=== PATIENT | female | born 1955 | race Caucasian/White ===

== ENCOUNTER → 2016-08-16 | Outpatient (CLI) | payer OTHER ==
[~2016-08-16] MED LIST: CALCIUM + D SO1 EACH; LEVOTHYROXIN0.025 MG; MULTIVITAMINS1 EAC7; PERCOCET 7.5-31 EACH PO; PROZAC20 MG; TUMS; VITAMIN D400 UNI2; XARELTO10 MG PO
== END ==
LOC: RAD 13:10
DX: Z12.31 Encounter for screening mammogram for malignant neoplasm of breast (principal)

== ENCOUNTER → 2016-11-30 | Outpatient (CLI) | payer OTHER ==
[2016-11-30 07:50] LABS: CREATININE 0.6 mg/dL (0.6-1.0)
== END ==
LOC: ULTRA 07:01
PROVIDERS: Family Medicine
DX: N64.4 Mastodynia (principal); R31.29 Other microscopic hematuria

== ENCOUNTER → 2019-02-06 | Outpatient (CLI) | payer OTHER | LOC: RAD 13:30 | DX: Z12.31 Encounter for screening mammogram for malignant neoplasm of breast (principal) ==

== ENCOUNTER → 2019-05-01 | Outpatient (CLI) | payer OTHER | LOC: NUC 08:19 | DX: M81.0 Age-related osteoporosis without current pathological fracture (principal); Z78.0 Asymptomatic menopausal state; N91.2 Amenorrhea, unspecified ==

== ENCOUNTER → 2019-05-10 | Outpatient (CLI) | payer OTHER ==
[~2019-05-10] MED LIST changes: +AMITRIPTYLINE H25 M4 PO; +ELMIRON 100 MG100 M1 PO; +LEVO-T100 MCG PO; +PREMARIN0.625 MG PO; -PROZAC20 MG; +PROZAC20 MG PO
--- NOTE | 2019-05-11 19:00 | SLE ---
[facility] [place] [address] POLYSOMNOGRAPHY STUDY Name: CIERRAREBECCA IZQUIERDOI Room #: REG [facility].#: [id number] Admission: 05/10/19 Attend Phys: Sumeet Jasso MD Discharge: Date of : 53 Report #: [id number] THIS REPORT FOR: //name// CC: Sumeet García MD DATE OF SERVICE: 05/10/2019 SLEEP STUDY DATE OF STUDY: 05/10/2019. REFERRED BY: Dr. Marcelo García. The patient is 63 years old, who weighs 142 pounds with a BMI of 22.6. The patient has severe subjective hypersomnia with an [place] score of 18. Review of medications revealed the use of amitriptyline and fluoxetine. The patient underwent diagnostic sleep study performed at [facility]. During the night of study, the patient spent 467 minutes in bed and slept for 379 minutes with a sleep efficiency of 81%. Sleep latency was 22 minutes with a REM latency of 391 minutes. Sleep architecture showed increased stage 1 and stage 2 sleep, reduced slow wave, and reduced REM sleep, which was only 3.3% of the total sleep time. During the night of study, patient had 24 obstructive apneas, 4 mixed apneas, 2 central apneas, and 4 hypopneas. The patient's apnea hypopnea index was 5.4 per hour with a REM index of 4.8 per hour and a supine index of 7.8 per hour. EKG monitoring revealed an average heart rate of 80 beats per minute and no sustained arrhythmias were observed. Occasional PVCs and PACs were seen. PLMS was seen at an index of 9 per hour and 3 per hour, caused EEG arousals. Nocturnal oximetry study revealed an average oxygen saturation of 96% with a lowest of 88%. Due to low AHI, patient did not meet the split night criteria for a CPAP initiation. IMPRESSION: 1. Mild sleep apnea-hypopnea syndrome at an AHI of 5.4 per hour. 2. No clinically significant nocturnal hypoxia. 3. Mild periodic limb movements. [facility] [address] [place] [address] POLYSOMNOGRAPHY STUDY Name: REBECCA NORTON Room #: REG [facility]#: [id number] Admission: 05/10/19 Attend Phys: Sumeet Jasso MD Discharge: Date of : 53 Report #: [id number] RECOMMENDATIONS: 1. The patient did not meet the split night criteria for CPAP initiation due to a low AHI. 2. The patient has severe subjective hypersomnia.( epworth score 18). Would recommend treating patient's mild sleep apnea with either CPAP or oral appliance to see an improvement in symptoms. 3. Consider the effect of the medications as well, which may be contributing to hypersomnia. Clinical correlation is advised. She is currently on fluoxetine and amitriptyline. 4. If the patient's hypersomnia does not resolve after the above recommendation, then patient would need further evaluation such as multiple sleep latency test to rule out disorders such as narcolepsy. 5. Avoid RECRUITMENT INTERN depressants. 6. Cautioned regarding driving until patient's hypersomnia is resolved with the above recommendations. <ELECTRONICALLY SIGNED> By: Sumeet Jasso MD 05/11/19 1900 1506 1725 Sumeet Jasso MD /nt
== END ==
LOC: SLEEPLAB 10:15
DX: G47.33 Obstructive sleep apnea (adult) (pediatric) (principal); G47.30 Sleep apnea, unspecified; G47.20 Circadian rhythm sleep disorder, unspecified type

== ENCOUNTER → 2019-05-20 | Outpatient (CLI) | payer OTHER ==
[~2019-05-20] VITALS: Ht 170.2 cm; Wt 64.9 kg
--- NOTE | 2019-05-21 05:56 | P ---
[facility] [place] [address] PROCEDURE REPORT Name: REBECCA NORTON Room #: REG [facility] Fu#: [id number] Admission: 05/20/19 Attend Phys: Kavya Hood DO Discharge: Date of : 53 Report #: [id number] THIS REPORT FOR: //name// CC: Kavya García DATE OF SERVICE: 05/20/2019 COLON POLYP SURVEILLANCE COLONOSCOPY She is a patient of Dr. Marcelo García. INDICATION FOR PROCEDURE: This patient has a history of adenomatous colon polyps that were small. Last colonoscopy, I believe, was in 2014. Informed consent for this procedure was obtained prior to the administration of any medication. The risks of the procedure, which include bleeding, perforation, infection, complications of sedation and the possibility I could miss something were explained to the patient and she has indicated her consent by signing. DESCRIPTION OF PROCEDURE: Propofol was slowly titrated before and during this procedure for patient comfort by the anesthesia service. Digital rectal exam was performed and no abnormalities were palpated. Then, the Olympus colonoscope was introduced through the anal sphincter and advanced under direct visualization to the terminal ileum. Findings are noted on withdrawal of the scope. The terminal ileal mucosa appears normal. Cecum, normal mucosa. Ascending colon, normal mucosa. Hepatic flexure, normal mucosa. Transverse colon, normal mucosa. Splenic flexure, normal mucosa. Descending colon, normal mucosa. Sigmoid colon, normal mucosa. Rectum, normal mucosa. Retroflexed view did not reveal any abnormalities. The scope was withdrawn. The patient went to the recovery area in stable condition. She tolerated the procedure well. IMPRESSION: Normal colonoscopic exam to the terminal ileum. No evidence of recurrent colon polyps. RECOMMENDATIONS: For her to have a followup colonoscopy in approximately [address] [address] PROCEDURE REPORT Name: CIERRAREBECCA PILY Room #: REG [facility] Fu#: [id number] Admission: 05/20/19 Attend Phys: Kavya Hood DO Discharge: Date of : 53 Report #: [id number] Thank you very much once again for allowing me to participate in her care, Dr. García. <ELECTRONICALLY SIGNED> By: Kavya Hood DO 05/21/19 0556 [id number] [id number] Kavya Hood DO /nt
== END | disposition home or self-care (01) ==
LOC: GI 11:27
DX: Z12.11 Encounter for screening for malignant neoplasm of colon (principal); Z86.010 Personal history of colon polyps; E03.9 Hypothyroidism, unspecified; E78.5 Hyperlipidemia, unspecified; Z87.19 Personal history of other diseases of the digestive system; M85.80 Other specified disorders of bone density and structure, unspecified site; Z98.890 Other specified postprocedural states; Z79.899 Other long term (current) drug therapy; Z85.820 Personal history of malignant melanoma of skin
CPT/HCPCS: 62110; 62900

== ENCOUNTER → 2019-06-10 | Outpatient (CLI) | payer OTHER | LOC: RAD 10:29 | DX: M47.815 Spondylosis without myelopathy or radiculopathy, thoracolumbar region (principal); M43.8X4 Other specified deforming dorsopathies, thoracic region; M41.85 Other forms of scoliosis, thoracolumbar region ==

== ENCOUNTER → 2019-06-15 | Outpatient (CLI) | payer OTHER | LOC: MRI 09:59 | DX: S22.080A Wedge compression fracture of T11-T12 vertebra, initial encounter for closed fracture (principal); X58.XXXA Exposure to other specified factors, initial encounter; Y93.89 Activity, other specified; Y92.89 Other specified places as the place of occurrence of the external cause; Y99.8 Other external cause status ==

== ENCOUNTER → 2021-01-18 | Outpatient (CLI) | payer OTHER ==
[~2021-01-18] MED LIST changes: +ALEVE220 M1 PO; +CLOBETASOL 0.0560 G1 TOP; +ESTRACE42.5 GM VAG; +FLUOXETINE HCL40 MG PO; +HAIR SKIN NAIL1 EACH PO; +HYDROCORTISONE30 GM TOP; +LEVOXYL112 MCG PO; +LIPITOR 20 MG T20 M1 PO; +TUMS X-STR300 MG PO; +VISTARIL 25 MG25 M1 PO; +VITAMIN D350 MCG PO
[2021-01-18 09:11] LABS: HEMATOCRIT 38.8 % (37.0-47.0); MCH 32.1 pg (26.0-34.0); MCHC 33.6 g/dL (28.0-37.0); MCV 95.6 fL (80.0-100.0); RBC 4.06 mil/uL (4.20-5.00); RDW 13.7 % (10.5-14.5); WBC 4.5 thou/uL (4.0-11.0)
[2021-01-18 09:25] LABS: URINE BILIRUBIN NEGATIVE (Negative); URINE BLOOD TRACE (Negative); URINE CLARITY CLEAR; URINE COLOR YELLOW; URINE GLUCOSE-RANDOM* NEGATIVE (Negative); URINE KETONES NEGATIVE (Negative); URINE LEUKOCYTES-REFLEX NEGATIVE (Negative); URINE NITRITE-REFLEX NEGATIVE (Negative); URINE PROTEIN (DIPSTICK) NEGATIVE (Negative); URINE UROBILINOGEN 0.2 E.U./dl (0.2-1.0)
[2021-01-18 09:28] LABS: ALBUMIN 3.7 g/dL (3.4-5.0); CALCIUM 8.6 mg/dL (8.5-10.1); CREATININE 0.7 mg/dL (0.6-1.0); POTASSIUM 3.9 mmol/L (3.5-5.1)
[2021-01-18 09:31] LABS: INR 0.97; PROTIME 10.6 Seconds (10.5-12.1)
--- NOTE | 2021-01-19 07:59 | EKG ---
[place] [address] [facility] [place] [address] ELECTROCARDIOGRAM REPORT Name: REBECCA NORTON Room #: REG [facility] Nickie#: [id number] Admission: 01/18/21 Attend Phys: Pablo Doan MD Discharge: Date of : 53 Report #: [id number] [facility] Test Date: 2021-01-18 Test Time: 08:59:34 Pat Name: REBECCA NORTON Department: Room: Gender: F Directional Driller: DARY : 1955 Requested By: Pablo Doan Order Number: [id number] MD: Pasquale Bruce Measurements Intervals [place]ott Rate: 74 P: 75 CT: 161 QRS: 72 QRSD: 100 T: 63 QT: 420 QTc: 466 Interpretive Statements Sinus rhythm No significant abnormality Compared to ECG 04/12/2015 15:37:06 No significant changes Electronically Signed On 01-19-2021 7:59:14 CDT by Pasquale Bruce [email or web address] <ELECTRONICALLY SIGNED> By: Pasquale Bruce MD, [facility] 01/19/21 [phone] [id number] Pasquale Bruce MD, FACC /EPI
== END ==
LOC: PAC 06:04
PROVIDERS: ATTEND Orthopaedic Surgery
DX: Z01.812 Encounter for preprocedural laboratory examination (principal); Z01.810 Encounter for preprocedural cardiovascular examination; M17.11 Unilateral primary osteoarthritis, right knee; Z91.048 Other nonmedicinal substance allergy status

== ENCOUNTER 2021-01-30 10:03 | Inpatient (IN) | payer OTHER ==
[2021-01-30] VITALS (8 sets, daily range): BP systolic 102–139; BP diastolic 59–78
[~2021-01-30] VITALS: Ht 167.6 cm; Wt 59.4 kg
--- NOTE | 2021-01-30 17:05 | NUR ---
ASSUMED PT CARE THIS AM. PT A&OX4, ABLE TO MAKE NEEDS KNOWN. PATIENT REPORTING PAIN AT A 3/10, DENIES NEEDING PAIN MEDICATION AT THIS TIME. PATIENT REPORTING NO NAUSEA, NUMBNESS, OR TINGLING. PATIENT REPORTS STIFFNESS IN THE RIGHT HIP. DRESSING TO RIGHT HIP IS C/D/I, ICE PACK IN PLACE. FALL PRECAUTIONS ARE IN PLACE, CALL LIGHT WITHIN REACH. PATIENT IS ON ROOM AIR. BROTHAARON MCDUFFIE IS AT BEDSIDE.
--- NOTE | 2021-01-31 02:27 | NUR ---
ASSUMED PT CARE AT 1900.PT C/O PAIN TO HER R KNEE,MANAGED WITH MED.PT UP WITH ASSIST/GB AND WALKER TO TE [facility],GOOD ENDURANCE NOTED.DRSG TO HER KNEE C/D/I WITH POLAR PACK/SCD AND BELLE HOSE IN PLACE.PT WAS NAUSEOUS AT START OF SHIFT,REGLAN PRN REGLAN GIVEN,EFFECTIVE.PT RESTING ON HER BED AT THIS TIME.CALL LIGHT WITHIN REACH.
--- NOTE | 2021-01-31 03:10 | NUR ---
ASSUMED PT CARE AT 1900.HS MEDS TAKEN BY PT WITH NO PROBLEM.PT UP WITH ASSIST TO THE BSC,GOOD ENDURANCE NOTED.DRSG TO HER R HIP C/D/I WITH ICE BAG IN PLACE.PT ABLE TO MAKE HIS NEEDS KNOWN.CALL LIGHT WITHIN REACH.
[2021-01-31 04:49] VITALS: BP 112/64
[2021-01-31 09:02] VITALS: BP 110/58
--- NOTE | 2021-01-31 11:04 | O ---
[facility] [place] [address] OPERATIVE REPORT Name: REBECCA NORTON Room #: 447-P [facility]#: [id number] Admission: 01/30/21 Attend Phys: Pablo Doan MD Discharge: Date of : 53 Report #: [id number] THIS REPORT FOR: cc: Marcelo García MD, Rene P. MD Abraham,Pablo Prater MD ~ DATE OF SERVICE: 01/30/2021 PREOPERATIVE DIAGNOSIS: Right hip osteoarthritis. POSTOPERATIVE DIAGNOSIS: Right hip osteoarthritis. PROCEDURE: Right total hip arthroplasty. SURGEON: Pablo Doan MD. INSURANCE CLAIMS SPECIALIST: Miriam Higgins PA-C. INDICATION FOR INSURANCE CLAIMS SPECIALIST: Throughout the case, extensive retraction and manipulation of the hip was required including dislocation and reduction. This was afforded to me by my warehouse assistant. ANESTHESIA: LMA. IMPLANTS: [employer]ic[employer]hew size 14 high offset Synergy cemented stem, a size 52 R3 acetabular cup with one acetabular screw and a size 36, -3 Oxinium head. ESTIMATED BLOOD LOSS: 150 mL COMPLICATIONS: None. SPECIMENS: None. CONDITION UPON LEAVING THE OR: Stable. INDICATIONS FOR PROCEDURE: The patient is a 65-year-old female with right hip osteoarthritis. She had failed conservative measures for this and after discussion with her, she elected for right total hip arthroplasty. DESCRIPTION OF PROCEDURE: Risks, benefits, alternatives, complications were discussed in detail with the patient including but not limited to risk of anesthesia, risk of damage to nerves, arteries, blood vessels, risk for infection, bleeding, risk for leg length discrepancy, instability and need for reoperation. Informed consent was obtained from the patient. Right hip was appropriately marked in the preoperative holding area. IV Ancef was given for preoperative antibiotics. She was brought to the operating room and placed in [address] [address] OPERATIVE REPORT Name: REBECCA NORTON Room #: 447-P [facility]#: [id number] Admission: 01/30/21 Attend Phys: Pablo Doan MD Discharge: Date of : 53 Report #: [id number] supine position on the operating room table. LMA anesthesia was induced without complication. She was then placed in the left lateral decubitus position with the right hip uppermost. Right hip and lower extremity were prepped and draped in normal sterile fashion. Timeout was performed properly identifying the patient and procedure as well as instrumentation and implants. All in the operating room in were agreement. Standard posterior approach to the hip was made with #10 blade through the skin. Dissection was taken down to fascia with Bovie cautery. Perera elevator was used to clean off the fascia. Fresh #10 blade was used to make a fascial incision. This was taken proximally and distally with curved Knight scissor. Charnley retractor was placed. Trochanteric bursa was taken down with Bovie cautery. Piriformis tendon was identified, tagged and taken down with Bovie. Short external rotators were also taken down with Bovie cautery. Capsulotomy was made and capsule ends were tagged for later repair. Hip was dislocated. There was extensive osteoarthritic change of the femoral head. Femoral neck cut was made 1 cm proximal to the lesser trochanter based on preoperative templating and femoral head was removed. Deep acetabular retractors were placed. Labrum was removed sharply. Pulvinar was removed with Bovie cautery. Acetabulum was then sequentially reamed up to a size 52, at which point there was excellent bleeding cancellous bone. A size 51 trial cup was placed, found to have a good fit. A final size 52 R3 acetabular cup was placed and seated. One acetabular screw was placed for backup fixation and a polyethylene liner for a 36 head was placed. Attention was turned to the femur. This was reamed and broached up to a size 14, at which point the size 14 broach was stable. This was trialed with a high offset neck and a 36+0 head. Hip was reduced, taken through range of motion, found to be stable, found to have equal leg lengths. Hip was dislocated. Broach was removed and final size 14 high offset Synergy stem was cemented in place using standard cementation techniques. After the cement cured, this was trialed with a 36, -3 head. Hip was reduced, taken through range of motion, found to be stable, found to have equal leg lengths. Hip was dislocated. The trial head was removed and final size 36, -3 Oxinium head was placed. This hip was reduced, taken through range of motion, found to be stable, found to have equal leg lengths. The wound was thoroughly irrigated with normal saline. Periarticular injections consisting of morphine, ropivacaine, epinephrine, and Toradol were placed around the hip joint capsule. A gram of vancomycin was placed deep in the joint. The capsule and piriformis were repaired with 0 FiberWire. Fascia was closed with 0 Vicryl. Skin was closed with 2-0 Vicryl, 3-0 Monocryl. Dermabond and a NILESH dressing was applied. The patient tolerated this procedure well and went to recovery room under care of anesthesia postoperatively. <ELECTRONICALLY SIGNED> By: Pablo Doan MD 01/31/21 1104 1535 1615 Pablo Doan MD /mikey
[2021-01-31 11:50] VITALS: BP 110/58
--- NOTE | 2021-01-31 12:12 | NUR ---
ASSUMED PT CARE THIS AM. PT IS ALERT & ORIENTED X4. PT IS UP WITH ASSIST X1 TO THE BEDSIDE COMMODE WITH WALKER AND GAITBELT. PT HAS BILATERAL BELLE HOSES KNEE HIGH, NILESH DRESSING, ICE PACK AND SCD. PT IS ON ROOM AIR. PER PHYSICAL THERAPY OK FOR DC TODAY. PT WAS WORKING WITH PHYSICAL THERAPY THIS AM. PT TOLERATED MEDICATION AND DIET. 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 WILL CONTINUE TO MONITOR PT.
--- NOTE | 2021-01-31 14:45 | NUR ---
ASSESSMENT: CM REVIEWED CHART AND MET WITH PATIENT AT THE BEDSIDE. PT IS ALERT AND ORIENTED X4. PT IS S/P R CT. PT REPORTS LIVING ALONE BUT STATES HER BROTHER IS IN TOWN AND WILL BE STAYING WITH HER TO HELP. PT REPORTS HAVING 2 SMALL STEPS TO ENTER THE HOME AND NO STEPS SHE HAS TO USE ONCE INSIDE. PT REPORTS SHE HAS A GRAB BAR AT HOME WELL A WALKER SHE CAN USE. PT REPORTS BEING INDEPENDENT WITH ADLS. PT REPORTS SHE DOES NOT HAVE OUTPATIENT THERAPY CURRENTLY ARRANGED .PHYSICAL THERAPY WORKED WITH PATIENT AND SHE IS SAFE FOR HOME TODAY. PT HAS ORDERS TO DISCHARGE HOME TODAY WITH NO NEEDS FROM CM. CASE CLOSED.
== END 2021-01-31 14:45 | disposition home or self-care (01) | DRG 470 ==
LOC: OR → TBA 10:03 → OR 11:30 → 4S 15:46
PROVIDERS: ADMIT Orthopaedic Surgery; ATTEND Orthopaedic Surgery
PROC: 0SR9069 Replacement of Right Hip Joint with Oxidized Zirconium on Polyethylene Synthetic Substitute, Cemented, Open Approach (ICD-10-PCS; principal; 2021-01-30)
DX: M16.11 Unilateral primary osteoarthritis, right hip (principal); E78.5 Hyperlipidemia, unspecified; G47.33 Obstructive sleep apnea (adult) (pediatric); Z20.822 Contact with and (suspected) exposure to COVID-19
CPT/HCPCS: 10102; 50010; 50101; 50382; 50414; 51057; 51130; 51225; 51226; 53000; 53078; 53368; 54118; 56460; 56524; 56527; 56528; 56530; 57095; 57103; 62110; 62900; 70005

== ENCOUNTER → 2021-05-18 | Outpatient (CLI) | payer OTHER | LOC: BC 10:41 | PROVIDERS: ATTEND Family Medicine | DX: Z12.31 Encounter for screening mammogram for malignant neoplasm of breast (principal); N64.89 Other specified disorders of breast ==